=== PATIENT | male | born 1985 | race African-American/Black ===

== ENCOUNTER 2019-03-17 10:11 | Emergency (ER) | payer MEDICAID ==
[~2019-03-17] VITALS: Ht 193 cm; Wt 100.0 kg
[2019-03-17] MEDS ORDERED: LORAZEPAM 2MG/ML CPJ IM STA (11:28)
[2019-03-17] MEDS ORDERED: HALOPERIDOL LACTATE 5MG/ML VIAL IM STA (11:28)
[2019-03-17 12:25] LABS: BASOPHILS % 0.4 % (0.0-2.0); EOSINOPHILS % 0.3 % (0.0-5.0); HEMATOCRIT. 38.1 % (42.0-52.0); HEMOGLOBIN. 12.6 g/dL (14.0-18.0); MEAN CORPUSCULAR VOLUME 97.1 fL (80.0-94.0); MEAN PLATELET VOLUME 7.9 fl (7.4-10.4); MONOCYTES % 7.2 % (2.0-8.0); NEUTROPHILS % 74.1 % (40.0-76.0); PLATELET 252 x1000/uL (130-400); RED BLOOD CELL COUNT 3.92 mill/uL (4.7-6.1)
[2019-03-17 12:33] LABS: CHLORIDE 107 mEq/L (98-107)
[2019-03-17 12:37] LABS: ETHANOL BLOOD < 10 mg/dL
[2019-03-17 13:33] LABS: CLARITY URINE CLEAR (CLEAR); COLOR URINE YELLOW (YELLOW); KETONES URINE NEGATIVE (NEGATIVE); LEUKOCYTE ESTERASE URINE NEGATIVE (NEGATIVE); NITRITE URINE NEGATIVE (NEGATIVE); OCCULT BLOOD URINE NEGATIVE (NEGATIVE); PROTEIN URINE NEGATIVE (NEGATIVE); SPECIFIC GRAVITY URINE 1.007 (1.005-1.030); UROBILINOGEN URINE 0.2 E.U./dL (0.2-1.0)
[2019-03-17 13:50] LABS: *AMPHETAMINES SCREEN URINE PRESUMTIVE POSITIVE (NEGATIVE); *BARBITURATES SCREEN URINE NEGATIVE (NEGATIVE)
[2019-03-17 13:51] LABS: *BENZODIAZEPINES SCREEN URINE NEGATIVE (NEGATIVE); *COCAINE SCREEN URINE NEGATIVE (NEGATIVE); CANNABINOID URINE SCREEN NEGATIVE (NEGATIVE); METHADONE URINE SCREEN NEGATIVE (NEGATIVE); OPIATES URINE SCREEN NEGATIVE (NEGATIVE)
[2019-03-17 14:47] LABS: PHENCYCLIDINE URINE SCREEN NEGATIVE (NEGATIVE)
[2019-03-18 08:45] VITALS: BP 130/84
== END 2019-03-18 09:24 | disposition home or self-care (01) ==
LOC: ER 10:11
DX: T43.621A Poisoning by amphetamines, accidental (unintentional), initial encounter (principal); R44.0 Auditory hallucinations; F15.129 Other stimulant abuse with intoxication, unspecified; F23 Brief psychotic disorder; Y92.410 Unspecified street and highway as the place of occurrence of the external cause
CPT/HCPCS: 36415; 80053; 80165; 80305; 80307; 80320; 80329; 81003; 85025; 96372; 99283; J1630; J2060; G0480